=== PATIENT | female | born 1945 | race Caucasian/White ===

== ENCOUNTER 2019-08-17 15:15 | Outpatient (CLI) | payer MEDICARE, SELFPAY ==
--- NOTE | ~2019-08-17 | XR_ITS ---
EXAMINATION: XR abdomen obstructive series DATE: 08/17/2019 15:52 INDICATION: Left upper quadrant abdominal pain TECHNIQUE: Frontal supine and upright views of the abdomen were obtained. COMPARISON: CT abdomen and pelvis dated 03/08/2013 FINDINGS: Small amount of gas and stool scattered throughout the colon.No dilated gas-filled loops of bowel. N o free intraperitoneal gas. There are a few phleboliths in the pelvis. Visualized lung bases are richard r.Heart size is normal accounting for AP technique. Surgical clips at the left axilla. Mild lumbar le voscoliosis with moderate lower lumbar spondylosis. IMPRESSION: 1. No free intraperitoneal gas or dilated gas-filled loops of bowel to suggest obstruction. Reviewed, dictated and finalized at location A.
[2019-08-17 15:30] LABS: Basophils Absolute Auto 0.1 K/mm3 (0.0-0.1); Basophils Percent Auto 0.8 % (0.2-1.2); Eosinophils Absolute Auto 0.2 K/mm3 (0-0.3); Eosinophils Percent Auto 1.5 % (0-4.4); Hematocrit 41.8 % (37.0-47.0); Hemoglobin 13.3 g/dL (12.0-15.0); Immature Granulocyte Absolute 0.04 K/mm3 (0.00-0.031); Immature Granulocyte Percent A 0.4 % (0-0.5); Lymphocytes Absolute Auto 1.85 K/mm3 (0.9-3.2); Lymphocytes Percent Auto 16.8 % (18.3-44.2); Mean Corpuscular HGB Conc 31.8 g/dl (32-36); Mean Corpuscular Hemoglobin 30.6 pg (26-34); Mean Corpuscular Volume 96.3 fl (80-100); Mean Platelet Volume 10.5 fl (7.4-10.4); Monocytes Absolute Auto 0.9 K/mm3 (0.1-0.6); Monocytes Percent Auto 8.1 % (2.6-8.5); Neutrophils Percent Auto 72.4 % (45.5-73.1); Platelet Count Result 236 k/mm3 (150-375); Red Blood Count 4.34 M/mm3 (4.2-5.4); Red Cell Distribution Width 12.8 % (11.5-14.5)
[2019-08-17 15:42] LABS: Blood Urea Nitrogen 9 mg/dL (7-17); Calcium 9.2 mg/dL (8.4-10.2); Carbon Dioxide 29 mmol/L (22-30); Chloride 104 mmol/L (98-107); Estimated Glomerular Filt Rate > 60; Glucose 97 mg/dL (65-105); Potassium 4.4 mmol/L (3.4-5.0); Sodium 138 mmol/L (137-145)
[2019-08-17 17:24] LABS: Amylase 68 U/L (30-110); Lipase 75 U/L (23-300)
== END 2019-08-17 15:16 | disposition home or self-care (01) ==
PROVIDERS: PCP Family Medicine; Visit Provider Physician Assistant
DX: R10.12 Left upper quadrant pain (principal)
CPT/HCPCS: 36415; 74019; 80048; 82150; 83690; 85025

== ENCOUNTER 2019-10-20 11:21 | Outpatient (CLI) | payer MEDICARE, SELFPAY ==
--- NOTE | ~2019-10-20 | MM_ITS ---
EXAMINATION: MM screening [facility] BI w diandra HISTORY: Screening TECHNIQUE: Craniocaudal and mediolateral oblique 3-D tomosynthesis images were obtained and synthetic 2-D images were generated. CAD analysis was submitted and interpreted. COMPARISON: Comparison to multiple prior studies sequentially, with oldest reviewed study dated 08/2013. BREAST PARENCHYMAL COMPOSITION: There are scattered areas of fibroglandular density. FINDINGS: Stable architectural distortion in the upper outer quadrant of the right breast consistent with previous lumpectomy. There is no evidence of suspicious mass, calcification, or architectural di stortion to suggest malignancy in either breast. There has been no suspicious interval change. IMPRESSION: 1. No mammographic evidence of malignancy. 2. Recommend routine screening mammography in one year. BI-RADS Category 2: Benign finding(s). Reviewed, dictated and finalized at location A.
== END 2019-10-20 11:22 | disposition home or self-care (01) ==
LOC: ANHIMG 11:24
PROVIDERS: PCP Family Medicine; Visit Provider Family Medicine
DX: Z12.31 Encounter for screening mammogram for malignant neoplasm of breast (principal)
CPT/HCPCS: 77063; 77067

== ENCOUNTER 2020-03-13 06:54 | Outpatient (NON) | payer MEDICARE, SELFPAY ==
[2020-03-13 21:48] LABS: SARS-CoV-2 RNA PCR Negative
== END 2020-03-13 06:55 ==
PROVIDERS: Nurse Practitioner Family; PCP Family Medicine; Visit Provider Family Medicine
DX: R05 Cough (principal); Z20.828 Contact with and (suspected) exposure to other viral communicable diseases
CPT/HCPCS: 87635; C9803; U0003

== ENCOUNTER 2020-09-19 09:37 | Outpatient (CLI) | payer MEDICARE, SELFPAY ==
[2020-09-19 10:30] LABS: Alanine Aminotransferase 16 U/L (4-35); Albumin Level 4.2 g/dL (3.5-5.1); Alkaline Phosphatase 69 U/L (38-126); Anion Gap 7 mmol/L (8-16); Aspartate Amino Transferase 28 U/L (14-36); Bilirubin,Total 0.8 mg/dL (0.2-1.3); Blood Urea Nitrogen 13 mg/dL (7-17); Calcium 9.7 mg/dL (8.4-10.2); Carbon Dioxide 31 mmol/L (22-30); Chloride 100 mmol/L (98-107); Estimated Glomerular Filt Rate > 60; Glucose 106 mg/dL (65-105); Potassium 3.7 mmol/L (3.4-5.0); Sodium 138 mmol/L (137-145)
== END 2020-09-19 09:38 | disposition home or self-care (01) ==
PROVIDERS: PCP Family Medicine; Visit Provider Family Medicine
DX: I10 Essential (primary) hypertension (principal)
CPT/HCPCS: 36415; 80053

== ENCOUNTER 2020-10-20 08:21 | Outpatient (CLI) | payer MEDICARE, SELFPAY ==
--- NOTE | ~2020-10-20 | MM_ITS ---
EXAMINATION: MM screening [facility] BI w diandra HISTORY: Screening TECHNIQUE: Craniocaudal and mediolateral oblique 3-D tomosynthesis images were obtained and synthetic 2-D images were generated. CAD analysis was submitted and interpreted. COMPARISON: Comparison to multiple prior studies sequentially, with oldest reviewed study dated 10/2014. BREAST PARENCHYMAL COMPOSITION: There are scattered areas of fibroglandular density. FINDINGS: There are surgical lumpectomy changes in the upper outer quadrant of the right breast, unch anged from prior studies. There is no evidence of suspicious mass, calcification, or architectural di stortion to suggest malignancy in either breast. There has been no suspicious interval change. IMPRESSION: 1. No mammographic evidence of malignancy. 2. Recommend routine screening mammography in one year. BI-RADS Category 2: Benign finding(s). Reviewed, dictated and finalized at location A.
== END 2020-10-20 08:22 | disposition home or self-care (01) ==
LOC: ANHIMG 08:23
PROVIDERS: PCP Family Medicine; Visit Provider Family Medicine
DX: Z12.31 Encounter for screening mammogram for malignant neoplasm of breast (principal)
CPT/HCPCS: 77063; 77067

== ENCOUNTER → 2020-10-31 09:04 | Outpatient (CLI) | payer MEDICARE, SELFPAY ==
--- NOTE | ~2020-10-31 | XR_ITS ---
XR abdomen/kub 1V 10/31/2020 09:40 INDICATION: Left upper quadrant pain TECHNIQUE: KUB COMPARISON: 08/17/2019 FINDINGS: Bowel gas pattern is normal. There is no evidence of free air, mass, organomegaly, ascites or obstruction. No abnormal calculi are seen. The bones appear intact. There are pelvic phlebolith s. IMPRESSION: 1: No acute abdominal abnormality identified. Reviewed, dictated and finalized at location A.
== END ==
PROVIDERS: PCP Family Medicine; Visit Provider Family Medicine
DX: R10.12 Left upper quadrant pain (principal)
CPT/HCPCS: 74018

== ENCOUNTER 2020-11-26 20:03 | Inpatient (IN) | payer MEDICARE, SELFPAY ==
--- NOTE | ~2020-11-26 | CT_ITS ---
EXAMINATION: CT brain wo/w con DATE: 11/28/2020 19:42 INDICATION: Metastatic breast cancer TECHNIQUE: Computed tomography (CT) of the head was performed without and subsequently with 100 cc Om nipaque 350 intravenous contrast. The mA was adjusted according to patient size. Iterative reconstruc tion technique was employed. Exam dose: 1210.67 mGy-cm total exam DLP. COMPARISON: None FINDINGS: No intracranial mass lesion or hemorrhage or cerebrovascular accident is evident. No midlin e shift or mass effect. No subdural or epidural hematoma is detected. No fracture or bone destruction of the cranial vault. Included paranasal sinuses and mastoid air cell s are normally developed and aerated. IMPRESSION: No significant intracranial abnormality Reviewed, dictated and finalized at Location A. Metastatic breast cancer Reviewed, dictated and finalized at location A.
--- NOTE | ~2020-11-26 | CT_ITS ---
EXAMINATION: CT diagnostic chest w con DATE: 11/27/2020 15:42 INDICATION: Breast cancer staging TECHNIQUE: Transaxial computed tomographic images of the chest were obtained after the administration of 75 cc of Omnipaque 350 intravenous contrast. The dose-length product (DLP) was 127.03 mGy-cm. Ite rative reconstruction was used. COMPARISON: None FINDINGS: Subpleural reticular opacities in the anterior aspect of the right lung may reflect radiati on change. No focal airspace opacities are identified. There is mild atelectasis. No pleural effusion or pneumothorax is seen. No pathologically enlarged thoracic lymph nodes are identified. The heart s ize is normal. Surgical change is noted in the outer right breast. There is a lytic lesion of the T9 vertebral body which extends into the left pedicle and lamina. There is a pathologic fracture of T9. IMPRESSION: 1. Pathologic fracture of T9. No additional metastatic disease identified. Reviewed, dictated and finalized at location A.
--- NOTE | ~2020-11-26 | NM_ITS ---
EXAMINATION: NM bone scan whole body DATE: 11/27/2020 15:39 INDICATION: Bone metastases. Breast cancer. TECHNIQUE: 26.0 mCi Tc-99m HDP was administered intravenously. Delayed whole-body scintigrams were o btained. COMPARISON: CT chest dated 11/27/[address] abdomen and pelvis dated 11/26/2020 FINDINGS: Prominent increased bone uptake is lower thoracic spine at the level of T8 and T9 corresponding to a likely pathologic burst fracture of T8 and with mixed lytic and sclerotic lesions at the bilateral pe dicles of T9. Additional intense uptake at the right ischial tuberosity corresponds to an additional mixed lytic and sclerotic bone lesion on prior CT. Likely degenerative mild joint centered uptake at the right hindfoot, bilateral knees, acromioclavicular joints and at the bilateral hands and wrists. IMPRESSION: 1. Intense uptake associated with likely metastatic mixed lytic and sclerotic bone lesions at the rig ht ischial tuberosity and at the T8 and T9 vertebral bodies, the former with pathologic burst fractur e. Reviewed, dictated and finalized at location A. IMPRESSION: 1. Intense uptake associated with likely metastatic mixed lytic and sclerotic b one lesions at the right ischial tuberosity and at the T8 and T9 vertebral bodi es, the former with pathologic burst fracture.
--- NOTE | ~2020-11-26 | CT_ITS ---
EXAMINATION: CT abdomen pelvis wo con DATE: 11/26/2020 23:24 INDICATION: Right flank pain TECHNIQUE: Computed tomography (CT) of the abdomen and pelvis was performed without intravenous contr ast. Automated exposure control and iterative reconstruction technique were employed. Exam dose: 212 .19 mGy-cm total exam DLP. COMPARISON: 03/08/2013 CT abdomen pelvis 10/31/2020 KUB FINDINGS: Scattered focal discoid atelectasis or scarring at the lung bases. Stable small peripheral opacity at the anterior aspect of the middle lobe since 03/08/2013. Normal heart size. No pericardial or pleural effusion. The gallbladder is moderately distended. No pericholecystic fluid or fat stranding. The liver, spleen , pancreas, bile ducts and pancreatic duct are unremarkable. Normal morphology of the adrenal glands. Approximately 2.5 mm nonobstructing mid left renal calculus. No other urinary tract calculus or hydro ureteronephrosis. The urinary bladder is unremarkable. Status post hysterectomy. Normal caliber of the abdominal aorta. No intraperitoneal or retroperitoneal or pelvic mass lesion or adenopathy or ascites. Minimal colonic diverticulosis; no CT evidence of diverticulitis. No bowel obstruction, bowel wall th ickening, pneumatosis or intraperitoneal free air. There is suggestion of extensive lytic change of T8, which is only minimally included in this examina tion. There is a history of cervical and breast cancer. Metastatic breast cancer is suspected. Consid er radionuclide bone scan for further evaluation. No suspicious osteolytic or osteoblastic lesions are noted otherwise. There is prominent degenerative change at the apophyseal joints and lumbosacral area with associated grade 1 anterolisthesis at L4-5 . There is severe degenerative disc disease at L4-5 and L5-S1. IMPRESSION: Extensive lytic change of T8 consistent with metastatic disease, likely metastatic breas t cancer given the patient's history Approximately 2.5 mm nonobstructing mid left renal calculus; no urinary tract obstruction or hydronep hrosis Status post hysterectomy Minimal colonic diverticulosis Reviewed, dictated and finalized at Location A. Reviewed, dictated and finalized at location A. IMPRESSION: Extensive lytic change of T8 consistent with metastatic disease, pablo howard metastatic breast cancer given the patient's history Approximately 2.5 mm nonobstructing mid left renal calculus; no urinary tract o bstruction or hydronephrosis Status post hysterectomy Minimal colonic diverticulosis
--- NOTE | ~2020-11-26 | MR_ITS ---
EXAMINATION: MR thoracic spine wo/w con EXAM DATE: 11/28/2020 12:43 INDICATION: Lytic lesion T8 and pathologic burst fx T9 . Breast cancer. TECHNIQUE: Multi-sequential, multiplanar MR images of the thoracic spine were obtained without contra st. Sagittal T1, T2, T2 fat saturation, axial T2 weighted images reviewed. Axial T1 weighted sequenc e. Patient was then injected with 14 mL Multihance intravenous contrast and reimaged. Postcontrast axial and sagittal T1-weighted fat saturation sequences were obtained. FINDINGS: There is pathological burst fracture of the T9 vertebral body with only 3 mm bulging crib tender ior aspect, moderate loss of this vertebral body height. Marrow infiltration extends into left pedicl e and facet joint, and has extraosseous extension into the left posterolateral paraspinal soft tissue including the T9-T10 neural foramina. Small amount of infiltration of the T8 and T10 vertebral yazan s at their left sides. Otherwise the thoracic neural foramen are widely patent. There is mild central canal stenosis posterior to the T9 vertebral body. Postcontrast images demonstrates enhancement of t he infiltrative malignancy described above. IMPRESSION: T9 pathological compression fracture from underlying infiltrative malignancy with left po sterior lateral extraosseous extension and small amount of contiguous T8 and T10 invasion. Reviewed, dictated and finalized at location B. IMPRESSION: T9 pathological compression fracture from underlying infiltrative m alignancy with left posterior lateral extraosseous extension and small amount o f contiguous T8 and T10 invasion.
[2020-11-26 20:19] VITALS: BP 149/69; PULSE 94; RESP 17; TEMP 36.8; O2SAT 98
[2020-11-26] MEDS: KETOROLAC 30 MG/ML VIAL (*BKC) 15 MG IV PUSH (23:47)
[2020-11-26 23:48] LABS: Add Urine Microscopic? YES; Appearance Urine Clear (Clear); Bilirubin Urine Negative (Negative); Blood Urine 1+ (Negative); Color Urine Straw (Yellow); Glucose Urine UA Negative (Negative); Ketones Urine Negative (Negative); Leukocyte Esterase Ur 3+ LEU/UL (Negative); Mucus Urine Rare /lpf; Nitrate Urine Negative (Negative); Protein Urine Negative (Negative); RBC Urine 0-2 /hpf (0-2); Specific Grav Ur 1.009 (1.001-1.035); Squamous Epithelial Cell Urine Rare /hpf (Few); Urobilinogen Urine Negative mg/dL (<2.0); WBC Urine 31-50 /hpf
[2020-11-26] MEDS: ONDANSETRON INJ 4 MG/2 ML VIAL IV PUSH (23:50)
[2020-11-26] MEDS: MORPHINE SULFATE (*CRX) 4 MG/ML INJ 2 MG IV PUSH (23:52)
[2020-11-26 23:58] VITALS: BP 127/72; PULSE 71; RESP 13; O2SAT 100
[2020-11-27] VITALS (14 sets, daily range): BP systolic 101–153; BP diastolic 49–71; PULSE 62–81; RESP 12–18; TEMP 36.1–36.8; O2SAT 94–100; BMI 25.5
[2020-11-27 00:22] LABS: Basophils Absolute Auto 0.1 K/mm3 (0.0-0.1); Basophils Percent Auto 0.8 % (0.2-1.2); Eosinophils Absolute Auto 0.1 K/mm3 (0-0.3); Eosinophils Percent Auto 0.7 % (0-4.4); Hematocrit 41.7 % (37.0-47.0); Hemoglobin 13.5 g/dL (12.0-15.0); Immature Granulocyte Absolute 0.04 K/mm3 (0.00-0.031); Immature Granulocyte Percent A 0.4 % (0-0.5); Lymphocytes Absolute Auto 1.67 K/mm3 (0.9-3.2); Lymphocytes Percent Auto 15.8 % (18.3-44.2); Mean Corpuscular HGB Conc 32.4 g/dl (32-36); Mean Corpuscular Hemoglobin 30.5 pg (26-34); Mean Corpuscular Volume 94.1 fl (80-100); Mean Platelet Volume 10.6 fl (7.4-10.4); Monocytes Absolute Auto 0.7 K/mm3 (0.1-0.6); Monocytes Percent Auto 6.9 % (2.6-8.5); Neutrophils Percent Auto 75.4 % (45.5-73.1); Platelet Count Result 252 k/mm3 (150-375); Red Blood Count 4.43 M/mm3 (4.2-5.4); Red Cell Distribution Width 12.6 % (11.5-14.5); White Blood Count 10.5 K/mm3 (4.5-10.0)
[2020-11-27 00:32] LABS: Anion Gap 11 mmol/L (8-16); Blood Urea Nitrogen 10 mg/dL (7-17); Calcium 10.4 mg/dL (8.4-10.2); Carbon Dioxide 29 mmol/L (22-30); Chloride 101 mmol/L (98-107); Estimated CRCL calculation 66 ml/min; Estimated Glomerular Filt Rate > 60; Glucose 119 mg/dL (65-110); Potassium 3.4 mmol/L (3.4-5.0); Sodium 141 mmol/L (137-145)
--- NOTE | 2020-11-27 01:03 | ED.BACK ---
HPI - Back Pain/Injury General Chief Complaint: Back Pain/Injury Stated Complaint: right lower back pain and spasms Time Seen by Provider: 11/26/20 22:52 Source: patient Mode of arrival: ambulatory Limitations: no limitations History of Present Illness HPI Narrative: 75-year-old with a history of breast CA, cervical CA s/p radiation and chemotherapy here with complaints of right flank and back pain for the past several weeks. Patient states however for the past few days her pain has been quite intense. She denies any trauma. No history of fever or chills. Denies any blood in the urine. No previous history of urinary tract infections or kidney stones. She states that she has seen Dr. Bourgeois for the same had outpatient x-rays which were unremarkable. MD elicited complaint: back pain Onset (ago): week(s) (3) Timing: intermittent Severity: moderate Similar Symptoms Previously: Yes Location: lumbar spine and thoracic spine Radiation: abdomen Exacerbating factors: none Relieving factors: none Associated symptoms: denies other symptoms Related Data Allergies Allergy/AdvReac Type Severity Reaction Status Date / Time codeine AdvReac Unknown Vomiting Verified 11/26/20 23:03 Review of Systems Review of Systems: All systems reviewed & are unremarkable except as noted in HPI and below Constitutional: Constitutional: Reports no additional constitutional complaints Eyes: Eyes: Reports no additional eye complaints ENT: Reports system reviewed and no additional complaints, except as documented Cardiovascular: Cardiovascular: Reports no additional cardiovascular complaints Respiratory: Respiratory: Reports no additional respiratory complaints Gastrointestinal: Gastrointestinal: Reports as per HPI Musculoskeletal: Musculoskeletal: Reports as per HPI Integumentary/Breasts: Skin/Breast: Reports system reviewed and no additional complaints, except as docu Neurologic: Reports system reviewed and no additional complaints, except as documented PMFSH Past Medical History Medical History Bilateral low back pain Hypertension Family History Family History Mother Family history of diabetes mellitus in first degree relative Diabetes mellitus Father Family history of emphysema Family history of chronic obstructive pulmonary disease Other Family history of multiple sclerosis Social History Social History Smoking packs per day: 0.5 Smoking cigarettes per day: 10.0 Years smoked: 5 Smoking pack-years: 2.50 Smoking status: Former smoker Tobacco type: cigarettes Second hand tobacco smoke exposure: No Smoking end date: 03/14/74 Alcohol intake: never Substance use: never Gender identity (if verbalized by the patient): Female Exam Narrative: GENERAL: Well-appearing, well-nourished, and in no acute distress. HEAD: Normocephalic, atraumatic. EYES: PERRLA and EOMI. NECK: Supple. CHEST: Clear to auscultation. No respiratory distress. HEART: Regular rate and rhythm. No murmur heard. Normal peripheral pulses. ABDOMEN: Soft, nontender, nondistended, normal active bowel sounds. No CVA tenderness EXTREMITIES: Normal range of motion. No edema. Has pain around the thoracic and upper lumbar area SKIN: Warm, dry, no rash. NEURO: No focal deficits. Alert and oriented x3. PSYCH: Normal mood and affect. Course Course Emergency Course: Patient feeling much better at this time. I informed her about her lab work, CT findings. Admit to the hospital for pain control and for further work-up.. Vital Signs Vital signs: Vital Signs Temperature 36.8 C 11/26/20 20:19 Pulse Rate 94 11/26/20 20:19 Respiratory Rate 17 11/26/20 20:19 Blood Pressure 149/69 H 11/26/20 20:19 Pulse Oximetry 98 11/26/20 20:19 Temperature 36.8 C 11/26/20 20:19 Puls
[2020-11-27] MEDS: DEXAMETHASONE SOD PHOS INJ 4 MG/ML VIAL 10 MG IV PUSH (02:11)
[2020-11-27] MEDS: SODIUM CHLORIDE 0.9% IV 1,000 ML 50 ML IV CONT (02:12)
--- NOTE | 2020-11-27 02:33 | PM.IMHP ---
H&P: HPI History of Present Illness Date/Time: 11/27/20 02:33 Chief Complaint: Flank pain Narrative: This is a 75-year-old female with past medical history significant for breast cancer 10 years ago in remission, cervical cancer 5 years ago status post total hysterectomy patient presented to the emergency room due to pain in the right flank with radiation to the rib cage, patient tried taking Motrin also tried Salonpas but did not help she denies ,any rigors, any chills, any fevers, any cough, any sputum production, shortness of breath ,any chest pain, palpitations, PND ,orthopnea and leg swelling. She has been in her usual state of health up until this episode. Preliminary workup was significant for CT of abdomen and pelvis with nonobstructive renal calculi and T8 lytic lesion. Patient has been placed in observation for pain management. Review of Systems Review of Systems: Right flank and rib cage pain Constitutional: Constitutional: Denies chills, Denies fatigue, Denies fever(s), Denies lethargy, Denies malaise, Denies night sweats and Denies weakness Eyes: Eyes: Denies change in vision ENT: Denies dysphagia, Denies dizziness, Denies nasal congestion, Denies nasal discharge, Denies nasal obstruction and Denies odynophagia Cardiovascular: Cardiovascular: Denies edema, Denies irregular heart rhythm, Denies claudication, Denies lightheadedness, Denies radiating jaw, neck or arm pain, Denies palpitations, Denies dyspnea on exertion and Denies orthopnea Respiratory: Respiratory: Denies cough and Denies dyspnea Gastrointestinal: Gastrointestinal: Denies abdominal pain, Denies nausea and Denies vomiting Genitourinary: Genitourinary: Reports no additional female genitourinary complaints Musculoskeletal: Musculoskeletal: Denies arthralgias Integumentary/Breasts: Skin/Breast: Reports system reviewed and no additional complaints, except as docu Neurologic: Reports system reviewed and no additional complaints, except as documented Psychiatric: Psychiatric: Reports no additional psychiatric complaints Endocrine: Endocrine: Reports no additional endocrine complaints Hematologic/Lymphatic: Hematologic/Lymphatic: Reports no additional hematologic/lymphatic complaints Allergic/Immunologic: Allergic/Immunologic: Reports no additional allergic/immunologic complaints PMFSH Past Medical History Medical History Bilateral low back pain Hypertension Family History Family History Mother Family history of diabetes mellitus in first degree relative Diabetes mellitus Father Family history of emphysema Family history of chronic obstructive pulmonary disease Other Family history of multiple sclerosis Social History Social History Smoking packs per day: 0.5 Smoking cigarettes per day: 10.0 Years smoked: 5 Smoking pack-years: 2.50 Smoking status: Former smoker Tobacco type: cigarettes Second hand tobacco smoke exposure: No Smoking end date: 03/14/74 Alcohol intake: never Substance use: never Gender identity (if verbalized by the patient): Female Meds Home Medications and Allergies Home Medications Medication Instructions Recorded Confirmed Type lisinopril 10 1 tablet PO DAILY #90 tablet 04/23/20 10/29/20 Rx mg-hydrochlorothiazide 12.5 mg tablet Allergies Allergy/AdvReac Type Severity Reaction Status Date / Time codeine AdvReac Unknown Vomiting Verified 11/26/20 23:03 Vital Signs Vital Signs - 24 hr 11/26/20 20:19 11/26/20 23:58 11/27/20 00:16 Temperature 98.2 F Pulse Rate 94 71 67 Respiratory Rate 17 13 12 Blood Pressure 149/69 H 127/72 119/69 Pulse Oximetry 98 100 100 11/27/20 00:31 11/27/20 00:46 11/27/20 01:01 Temperature Pulse Rate 73 70 68 Respiratory Rate 14 14 13 Blood Pressure 153/64 H 124/65 130/71
--- NOTE | 2020-11-27 03:19 | ADMGEN ---
This patient, Rashida Bray, was admitted to [facility] Surg Room 322-01. Patient/family oriented to hospital policies and general routines including ID bracelet, bed and alarms, visiting hours, pain management, procedures, bathroom and other care routines, personal items, smoking policy, room service/diet, and visiting hours. Information on how to activate the Rapid Response Team has been discussed. Patient/Family are encouraged to report perceived risks to care and to ask questions if they do not understand what they are told or what they should do.
[2020-11-27] MEDS: HEPARIN SODIUM 5,000 UNITS/ML VIAL 5000 UNITS SUB-Q ×3 (05:23→22:05)
[2020-11-27] MEDS: lisinopriL 10 MG TABLET PO (10:40)
[2020-11-27] MEDS: hydroCHLOROthiazide 12.5 MG CAPSULE PO (10:40)
[2020-11-27 10:46] LABS: Anion Gap 11 mmol/L (8-16); Blood Urea Nitrogen 12 mg/dL (7-17); Calcium 9.5 mg/dL (8.4-10.2); Carbon Dioxide 25 mmol/L (22-30); Chloride 103 mmol/L (98-107); Estimated CRCL calculation 66 ml/min; Estimated Glomerular Filt Rate > 60; Glucose 197 mg/dL (65-110); Magnesium 2.2 mg/dL (1.6-2.3); Potassium 4.1 mmol/L (3.4-5.0); Sodium 139 mmol/L (137-145)
--- NOTE | 2020-11-27 12:37 | PDONCCN ---
HPI - Date of Consult Date/Time: 11/27/20 12:37 Requesting Physician: Jennifre Huitron PA-C Primary Care Provider: Antione Bourgeois MD - Consult Narrative Reason for consult: Likely metastatic breast cancer Narrative: Rashida Bray is a 75 year old female with history of right-sided breast cancer with lymph node positive disease status post right-sided lumpectomy 12 years ago and new adjuvant chemotherapy then radiation therapy. She completed 5 years of hormonal therapy with Arimidex. She was then diagnosed with cervical cancer about 7 years ago and had complete hysterectomy done. She did not receive any chemotherapy and radiation therapy for cervical cancer. Patient not started having intermittent abdominal pain since March of 2020 and pain become more constant in last couple of months duration. She denies any weight loss. Denies any chest pain and shortness of breath. She has some right flank and back pain. No new lung sounds are lymphadenopathy. CT scan of abdomen and pelvis was done on November 26 that showed extensive lytic change of T8 vertebral body consistent with metastatic disease likely breast cancer metastasis. Review of Systems - Review of Systems All systems reviewed & are unremarkable except as noted in HPI and bel - Neurologic Reports system reviewed and no additional complaints, except as documented, Denies weakness PMFSH Medical History: Medical History (Last Reviewed 11/27/20 @ 01:05 by Unruly Boateng MD) Bilateral low back pain Hypertension Family History: Family History (Last Reviewed 11/27/20 @ 01:06 by Unruly Boateng MD) Mother Family history of diabetes mellitus in first degree relative Diabetes mellitus Father Family history of emphysema Family history of chronic obstructive pulmonary disease Other Family history of multiple sclerosis - Social History Social History: Social History (Last Reviewed 11/27/20 @ 01:06 by Unruly Boateng MD) Gender Identity: Gender identity (if verbalized by the patient): Female Alcohol Use: Alcohol intake: never Substance Use: Substance use: never Others: Spiritual care concerns: No Smoking Status: Smoking status: Former smoker Tobacco type: cigarettes Second hand tobacco smoke exposure: No Smoking end date: 03/14/74 Smoking Pack-years: Smoking packs per day: 0.5 Smoking cigarettes per day: 10.0 Years smoked: 5 Smoking pack-years: 2.50 Meds Home Medications Medication Instructions Recorded Confirmed Type lisinopril 10 1 tablet PO DAILY #90 tablet 04/23/20 11/27/20 Rx mg-hydrochlorothiazide 12.5 mg tablet Allergies Allergy/AdvReac Type Severity Reaction Status Date / Time codeine AdvReac Unknown Vomiting Verified 11/26/20 23:03 Results - Labs CBC & Chem 7: 11/26/20 23:57 11/27/20 09:46 Labs: Short CBC 11/26/20 Range/Units 23:57 WBC 10.5 H (4.5-10.0) K/mm3 Hgb 13.5 (12.0-15.0) g/dL Hct 41.7 (37.0-47.0) % Plt Count 252 (150-375) k/mm3 BMP 11/26/20 11/27/20 23:57 09:46 Sodium 141 139 Potassium 3.4 4.1 Chloride 101 103 Carbon Dioxide 29 25 BUN 10 12 Creatinine 0.60 L 0.60 L Glucose 119 H 197 H Calcium 10.4 H 9.5 Urine 11/26/20 Range/Units 23:04 Urine Color Straw (Yellow) Urine Appearance Clear (Clear) Urine pH 6.0 (5.0-9.0) Ur Specific Whitmer 1.009 (1.001-1.035) Urine Protein Negative (Negative) mg/dL Urine Glucose (UA) Negative (Negative) mg/dL Assessment and Plan - Additional Plan Likely metastatic breast cancer with bone involvement. Patient is the pleasant 75-year-old female with diagnosis of early stage right-sided breast cancer with lymph node positive disease is status post lumpectomy and adjuvant chemotherapy with subsequent radiation therapy. She completed 5 years of hormonal therapy with Arimidex. She also has
[2020-11-27] MEDS: ACETAMINOPHEN 325 MG TABLET 650 MG PO (12:54)
--- NOTE | 2020-11-27 15:10 | PC.NURSE ---
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 I have reviewed the student's documentation and agree with the findings.
--- NOTE | 2020-11-27 16:12 | PM.IMPN ---
Progress Note: A&P Assessment and Plan (1) Back pain of thoracolumbar region: Code(s): M54.5 - Low back pain; M54.6 - Pain in thoracic spine Status: Acute Assessment and Plan: Patient has been having back pain for months. She saw her primary who did imaging which was inconclusive. She has slowly developed worsening pain without much improvement at home with oral medications and heating pad. CT abdomen pelvis was completed showing Extensive lytic change of T8 consistent with metastatic disease, likely metastatic breast cancer given the patient's history The patient was admitted into the hospital for further evaluation and oncology consultation. Dr. Ba evaluated the patient and has concerns that her prior breast cancer could have spread to her bone. CT chest and bone nuclear medicine scan have been ordered and pending interpretation by the radiologist Until then we will continue monitoring and treating her pain to a tolerable level and work on medications that she can take upon discharge Also start stool softeners and MiraLax to prevent diarrhea associated with narcotics The patient understands and agrees with the plan all questions answered (2) Hypertension: Code(s): I10 - Essential (primary) hypertension Status: Acute Assessment and Plan: Continue home med Blood pressure has been stable. (3) History of breast cancer: Code(s): Z85.3 - Personal history of malignant neoplasm of breast Status: Acute Assessment and Plan: Patient was in remission. Recent mammogram 1 month ago was normal (4) History of cervical cancer: Code(s): Z85.41 - Personal history of malignant neoplasm of cervix uteri Status: Acute Assessment and Plan: Patient is in remission. History of hysterectomy in the past. (5) UTI (urinary tract infection): Code(s): N39.0 - Urinary tract infection, site not specified Status: Acute Assessment and Plan: Patient has an abnormal urinalysis with 3+ leukocyte esterase and 31-50 wbc's. She was started on IV Rocephin upon admission by the emergency room provider. Pending urine culture results at this time. Hopefully by tomorrow results return and we can tailor antibiotics accordingly Time Spent With Patient Time with patient: 25 - 35 minutes Subjective Date/time seen: 11/27/20 16:12 Interval history: Date of service 11/27/2020: Patient reports having increased back pain after coming back from her CT scan and bone scan. She states it is to her mid back but it also is to her right flank area as well as across her upper abdomen. She denies any nausea or vomiting. She would like something stronger than Tylenol to help with this pain but she is naive to other medications. She denies any chest pain, shortness breath, cough, fever, chills, leg swelling, calf pain, numbness, tingling, fall, trauma or any other symptoms at this time. Review of Systems Review of Systems: All systems reviewed & are unremarkable except as noted in HPI and below Exam Narrative: General: 75-year-old woman sitting up in the chair, appears to be in pain holding her flank area and her eyes closed. In no acute distress. Skin: No jaundice or cyanosis. Good skin turgor. Neck: Full range of motion. Supple. Nontender to midline neck palpation. Respiratory: Lungs are clear to auscultation bilaterally. No bony chest wall tenderness. Cardiovascular: The heart has a regular rate and rhythm without murmur. Back: Midline tenderness to palpation to T8-T9. No signs of trauma to her back. She does report some mild reproducible tenderness to palpation of right flank but her pain is also different. Lower extremities: No lower ex
[2020-11-27] MEDS: polyethylene glycoL 3350 17 GM POWD.PACK PO (16:53)
[2020-11-27] MEDS: HYDROcodone/acetaminophen (*CRX) 5-325 MG TABLET 1 TAB PO (17:01)
[2020-11-27] MEDS: DOCUSATE SODIUM 100 MG CAPSULE PO (22:05)
[2020-11-28] MEDS: HYDROcodone/acetaminophen (*CRX) 5-325 MG TABLET 1 TAB PO ×3 (05:25→13:57)
[2020-11-28] MEDS: HEPARIN SODIUM 5,000 UNITS/ML VIAL 5000 UNITS SUB-Q ×3 (05:27→21:15)
[2020-11-28 06:00] VITALS: BP 108/49; PULSE 62; RESP 16; TEMP 36.6; O2SAT 100
[2020-11-28] MEDS: polyethylene glycoL 3350 17 GM POWD.PACK PO (08:36)
[2020-11-28] MEDS: lisinopriL 10 MG TABLET PO (08:36)
[2020-11-28] MEDS: hydroCHLOROthiazide 12.5 MG CAPSULE PO (08:36)
[2020-11-28] MEDS: DOCUSATE SODIUM 100 MG CAPSULE PO ×2 (08:36→21:15)
[2020-11-28] MEDS: CYCLOBENZAPRINE HCL 5 MG TABLET PO (10:01)
[2020-11-28 14:00] VITALS: BP 114/70; PULSE 72; RESP 16; TEMP 36.6; O2SAT 100
[2020-11-28] MEDS: BISACODYL 10 MG SUPPOSITORY RECTAL (15:04)
--- NOTE | 2020-11-28 16:37 | PM.IMPN ---
Progress Note: A&P Assessment and Plan (1) Back pain of thoracolumbar region: Code(s): M54.5 - Low back pain; M54.6 - Pain in thoracic spine Status: Acute Assessment and Plan: Patient has been having back pain for months. She has slowly developed worsening pain without much improvement at home with oral medications and heating pad. CT abdomen pelvis was completed showing Extensive lytic change of T8 consistent with metastatic disease, likely metastatic breast cancer given the patient's history The patient was admitted into the hospital for further evaluation and oncology consultation. Dr. Ba evaluated the patient and has concerns that her prior breast cancer could have spread to her bone. He checked CA 15-3 and CA 27-[address] chest was normal Bone nuclear medicine scan showing Intense uptake associated with likely metastatic mixed lytic and sclerotic bone lesions at the right ischial tuberosity and at the T8 and T9 vertebral bodies, the former with pathologic burst fracture. Due to Burst Fract ure being noted further MRI of thoracic spine was completed showing T9 pathological compression fracture from underlying infiltrative malignancy with left posterior lateral extraosseous extension and small amount of contiguous T8 and T10 invasion. I called [facility] and talked to Ortho Spine Dr. Mendez who reviewed the patient's MRI and recommends her to have a TLSO brace. 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 The TLSO brace will help with stability, avoid kyphosis deformity and help with her overall pain. He recommends x-rays of her thoracic spine every 1-2 weeks to monitor for alignment. He recommends her seen a surgical services asst at [facility] who works with spinal cancers his name is Dr. Osiel Iqbal. I talked to Dr. Ba oncology, who recommended better pain control with morphine 15 mg every 12 hours with breakthrough pain using [place] 5/325 mg tablets. A call was placed for a TLSO brace with Petrophysicist who should be by tomorrow with it Until then we will continue monitoring and treating her pain to a tolerable level and work on medications that she can take upon discharge Also start stool softeners and MiraLax to prevent constipation associated with narcotics Will get CT Brain recommeded by [facility] to rule out malignancy Further imaging recommended by [facility] as outpatient to include MRI Cervical, Thoracic and Lumbar with and without contrast The patient understands and agrees with the plan all questions answered (2) Hypertension: Code(s): I10 - Essential (primary) hypertension Status: Acute Assessment and Plan: Continue home med Blood pressure has been stable. (3) History of breast cancer: Code(s): Z85.3 - Personal history of malignant neoplasm of breast Status: Acute Assessment and Plan: Patient was in remission. Recent mammogram 1 month ago was normal (4) History of cervical cancer: Code(s): Z85.41 - Personal history of malignant neoplasm of cervix uteri Status: Acute Assessment and Plan: Patient is in remission. History of hysterectomy in the past. (5) UTI (urinary tract infection): Code(s): N39.0 - Urinary tract infection, site not specified Status: Acute Assessment and Plan: Patient has an abnormal urinalysis with 3+ leukocyte esterase and 31-50 wbc's. She was started on IV Rocephin upon admission by the emergency room provider. Pending urine culture results at this time. Hopefully by tomorrow results return and we can tailor antibiotics accordingly Time Spent With Patient Time with patient: 25 - 35 minute
[2020-11-28] MEDS: GABAPENTIN 100 MG CAPSULE PO (18:33)
[2020-11-28] MEDS: MORPHINE SULFATE (*CRX) 15 MG TABCR PO (21:15)
[2020-11-28 22:00] VITALS: BP 124/69; PULSE 64; RESP 20; TEMP 36.5; O2SAT 98
[2020-11-29] MEDS: HYDROcodone/acetaminophen (*CRX) 5-325 MG TABLET 1 TAB PO (05:33)
[2020-11-29] MEDS: HEPARIN SODIUM 5,000 UNITS/ML VIAL 5000 UNITS SUB-Q ×2 (05:34→13:33)
[2020-11-29 06:00] VITALS: BP 109/61; PULSE 75; RESP 20; TEMP 36.6; O2SAT 98
[2020-11-29] MEDS: lisinopriL 10 MG TABLET PO (08:37)
[2020-11-29] MEDS: GABAPENTIN 100 MG CAPSULE PO ×2 (08:37→13:33)
[2020-11-29] MEDS: DOCUSATE SODIUM 100 MG CAPSULE PO (08:37)
[2020-11-29] MEDS: polyethylene glycoL 3350 17 GM POWD.PACK PO (08:37)
[2020-11-29] MEDS: hydroCHLOROthiazide 12.5 MG CAPSULE PO (08:37)
[2020-11-29] MEDS: MORPHINE SULFATE (*CRX) 15 MG TABCR PO (08:44)
[2020-11-29 14:00] VITALS: BP 96/52; PULSE 65; RESP 18; TEMP 36.9; O2SAT 99
--- NOTE | 2020-11-29 15:00 | PM.DS ---
DS: Admitting Diagnosis Discharge Date 11/29/20 Admitting Diagnosis Back pain DS: Discharge Diagnosis Discharge Diagnosis (1) Back pain of thoracolumbar region: Code(s): M54.5 - Low back pain; M54.6 - Pain in thoracic spine Status: Acute Assessment and Plan: The patient is a 75-year-old woman with a history of breast cancer 10 years ago in remission, cervical cancer 5 years ago status post total hysterectomy, who presented to the emergency room with worsening, constant right-sided back pain with radiation into her upper abdomen which have been going on for months without any relief with Motrin at home. Vitals show elevated blood pressure 149/69, non tachycardic heart rate, afebrile, normal oxygenation on room air. Initial labs show slight leukocytosis at 10,500, most likely secondary to pain. Normal BMP. Urinalysis with 3+ leukocyte esterase and WBCs 30 1-50 with urine culture showing contamination. Patient is not having any urinary symptoms at this time but if she develops that she will call her PCP. CT abdomen pelvis was completed showing Extensive lytic change of T8 consistent with metastatic disease, likely metastatic breast cancer given the patient's history The patient was admitted into the hospital for further evaluation and oncology consultation. Dr. Ba evaluated the patient and has concerns that her prior breast cancer could have spread to her bone. He checked CA 15-3 and CA 27-29 which are both elevated. CT chest was normal CT Brain normal Bone nuclear medicine scan showing Intense uptake associated with likely metastatic mixed lytic and sclerotic bone lesions at the right ischial tuberosity and at the T8 and T9 vertebral bodies, the former with pathologic burst fracture. Due to Burst Fract ure being noted further MRI of thoracic spine was completed showing T9 pathological compression fracture from underlying infiltrative malignancy with left posterior lateral extraosseous extension and small amount of contiguous T8 and T10 invasion. I called [facility] and talked to Ortho Spine Dr. Mendez who reviewed the patient's MRI and recommends her to have a TLSO brace. 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 The TLSO brace will help with stability, avoid kyphosis deformity and help with her overall pain. He recommends x-rays of her thoracic spine every 1-2 weeks to monitor for alignment. He recommends her seen a director medical surgical at [facility] who works with spinal cancers his name is Dr. Osiel Iqbal. I talked to Dr. Ba oncology, who recommended better pain control with morphine 15 mg every 12 hours with breakthrough pain using [place] 5/325 mg tablets. Also started on Gabapentin for radiculopathy nerve pain which is her biggest complaint. A call was placed for a TLSO brace with [employer] who delivered it and PT/OT evaluated the patient to help her use the brace. The patient is feeling well at this time and the pain medications are helping. She is also started on stool softener to prevent diarrhea associated with narcotic use. To follow-up with Dr. Ba in 1 week for further evaluation and to go over her labs and imaging results. She was given the information to see Dr. Osiel herrera when who specializes in spine surgery related to metastases. Further imaging recommended by [facility] as outpatient to include MRI Cervical, Thoracic and Lumbar with and without contrast if the patient is to see [facility] Spine as outpatient (2) Hypertension: Code(s): I10 - Essential (primary) hypertension Status: Acute Assessment and Plan: The patient's blood pressures have been slightly low since starting the narcotic pain medications. I discussed with the patient to stop taking hydrochlorothiazide and we will only send keep with lisinopril. Told her check her blood pressures twice daily o
[2020-11-30 06:17] LABS: CA 15-3 36 U/mL (<32); CA 27.29 58 U/mL (<38)
== END 2020-11-29 16:45 | disposition home or self-care (01) | DRG 543 ==
LOC: ANHED 11-27 01:11 → ANH3MEDSUR 11-27 02:29
PROVIDERS: Internal Medicine Hematology & Oncology; Physician Assistant; Admitting Provider Internal Medicine; Emergency Provider Family Medicine; PCP Family Medicine; Visit Provider Internal Medicine
DX: M48.54XA Collapsed vertebra, not elsewhere classified, thoracic region, initial encounter for fracture (principal); C79.51 Secondary malignant neoplasm of bone; N39.0 Urinary tract infection, site not specified; I10 Essential (primary) hypertension; Z85.3 Personal history of malignant neoplasm of breast; Z85.41 Personal history of malignant neoplasm of cervix uteri; Z90.710 Acquired absence of both cervix and uterus; Z87.891 Personal history of nicotine dependence
CPT/HCPCS: 36415; 70470; 71260; 72157; 74176; 78306; 80048; 81001; 83735; 85025; 86300; 87086; 87088; 96365; 96372; 96374; 96375; 97162; 97165; 99285; A9270; A9561; A9577; G0378; J0696; J1100; J1644; J1885; J2270; J2405; J7030; Q9967

== ENCOUNTER 2021-01-27 16:38 | Outpatient (CLI) | payer MEDICARE, SELFPAY ==
--- NOTE | ~2021-01-27 | DEXA_ITS ---
Bone Density Report Name: Rashida Bray Age: 75 Sex: Female Ethnicity: White Date of : 1945 Indication: postmenopausal; height loss; prior fracture; cancer; hysterectomy; Referring Provider: NIDHI DIAZ Study: Bone densitometry was performed. Exam Date: January 27, 2021 Accession number: [id number] Bone Density: Region BMD T-score Z-score Classification AP Spine (L1, L2) 0.935 -0.4 1.8 Normal Femoral Neck (Left) 0.785 -0.6 1.4 Normal Total Hip (Left) 0.973 0.3 2.0 Normal Total Hip Bilateral Avg 0.950 0.1 1.8 Normal Femoral Neck (Right) 0.781 -0.6 1.4 Normal Total Hip (Right) 0.927 -0.1 1.6 Normal World Health Organization criteria for BMD impression classify patients as: Normal (T-score at or above -1.0), Osteopenia (T-score between -1.0 and -2.5), or Osteoporosis (T-score at or below -2.5). 10-year Fracture Risk: FRAX not reported because: All T-scores for Spine Total, Hip Total, Femoral Neck at or above -1.0 Prior hip or vertebral fracture Previous Exams: Region Exam Age BMD T-score BMD Change BMD Change Date g/cm2 vs Baseline vs Previous AP Spine(L1, L2) 01/27/2021 75 0.935 -0.4 -0.088(-8.6%)# -0.088(-8.6%)# 10/11/2011 66 1.023 0.4 Total Hip(Left) 01/27/2021 75 0.973 0.3 -0.032(-3.2%)# -0.004(-0.4%) 06/02/2017 72 0.977 0.3 -0.029(-2.9%)# -0.029(-2.9%)# 10/11/2011 66 1.006 0.5 Total Hip(Right) 01/27/2021 75 0.927 -0.1 -0.078(-7.8%)# -0.034(-3.6%)* 06/02/2017 72 0.962 0.2 -0.044(-4.3%)# -0.044(-4.3%)# 10/11/2011 66 1.005 0.5 *Denotes significance at 95% confidence level, LSC for AP Spine = 0.022 g/cm2, LSC for Total Hip = 0.027 g/cm2 Clinical Information Provided by Patient: Have had a previous hip or vertebral fracture Has had a low trauma fracture Has used the following medications: Vitamin D Has the following medical conditions: Cancer, Hysterectomy Patient maximum height was 67 Menopause Age: 56 Drinks caffeinated beverages Onset of menses at age 14 Number of children 1 Impression: The patient has normal bone mass. The patient has risk factors, including: previous fracture. The BMD for the Total Hip(Right) decreased, changing by -3.6% since the last DXA exam. Discussion: INCREASED RISK OF FRACTURE DUE TO HISTORY OF FRACTURE. The patient's previous fracture puts the patient at high risk of a future fracture. In untreated patients, the risk of osteoporotic fracture increases
== END 2021-01-27 16:39 | disposition home or self-care (01) ==
LOC: ANHIMG 16:44
PROVIDERS: Visit Provider Physician Assistant
DX: M48.50XA Collapsed vertebra, not elsewhere classified, site unspecified, initial encounter for fracture (principal); C50.511 Malignant neoplasm of lower-outer quadrant of right female breast; Z17.0 Estrogen receptor positive status [ER+]
CPT/HCPCS: 77080

== ENCOUNTER 2021-04-14 07:48 | Outpatient (CLI) | payer MEDICARE, SELFPAY ==
[2021-04-14 08:59] LABS: Hematocrit 36.1 % (37.0-47.0); Hemoglobin 11.9 g/dL (12.0-15.0); Mean Corpuscular Hemoglobin 31.6 pg (26-34); Mean Platelet Volume 9.4 fl (7.4-10.4); Platelet Count Result 155 k/mm3 (150-375); Red Blood Count 3.76 M/mm3 (4.2-5.4); Red Cell Distribution Width 13.2 % (11.5-14.5); White Blood Count 3.6 K/mm3 (4.5-10.0)
[2021-04-14 09:07] LABS: Alanine Aminotransferase 14 U/L (4-35); Albumin Level 4.3 g/dL (3.5-5.1); Alkaline Phosphatase 52 U/L (38-126); Anion Gap 5 mmol/L (8-16); Aspartate Amino Transferase 22 U/L (14-36); Bilirubin,Total 0.8 mg/dL (0.2-1.3); Blood Urea Nitrogen 18 mg/dL (7-17); Calcium 9.3 mg/dL (8.4-10.2); Carbon Dioxide 30 mmol/L (22-30); Chloride 105 mmol/L (98-107); Cholesterol 160 mg/dL (0-200); Estimated Glomerular Filt Rate > 60; Glucose 102 mg/dL (65-110); HDL Direct 70 mg/dL; Potassium 4.3 mmol/L (3.4-5.0); Sodium 140 mmol/L (137-145); Triglycerides 62 mg/dL (<150)
[2021-04-14 09:18] LABS: LDL Cholesterol Direct 60 mg/dL
[2021-04-14 10:37] LABS: Add Urine Microscopic? YES; Appearance Urine Clear (Clear); Bilirubin Urine Negative (Negative); Blood Urine Negative (Negative); Color Urine Straw (Yellow); Glucose Urine UA Negative (Negative); Ketones Urine Negative (Negative); Leukocyte Esterase Ur 1+ LEU/UL (NEGATIVE); Mucus Urine Rare /lpf; Nitrate Urine Negative (Negative); Protein Urine Negative (Negative); RBC Urine 0-2 /hpf (0-2); Specific Grav Ur 1.005 (1.001-1.035); Squamous Epithelial Cell Urine Rare /hpf (Few); Urobilinogen Urine Negative mg/dL (<2.0)
== END 2021-04-14 07:49 | disposition home or self-care (01) ==
PROVIDERS: PCP Family Medicine; Visit Provider Family Medicine
DX: R53.83 Other fatigue (principal); I10 Essential (primary) hypertension; Z00.00 Encounter for general adult medical examination without abnormal findings
CPT/HCPCS: 36415; 80053; 80061; 81001; 84443; 85027

== ENCOUNTER 2021-07-06 11:59 | Outpatient (CLI) | payer MEDICARE, SELFPAY ==
[2021-07-06 12:52] LABS: Basophils Absolute Auto 0.1 K/mm3 (0.0-0.1); Basophils Percent Auto 1.6 % (0.2-1.2); Eosinophils Absolute Auto 0.1 K/mm3 (0-0.3); Eosinophils Percent Auto 1.3 % (0-4.4); Hematocrit 35.2 % (37.0-47.0); Immature Granulocyte Absolute 0.02 K/mm3 (0.00-0.031); Immature Granulocyte Percent A 0.5 % (0-0.5); Lymphocytes Absolute Auto 1.32 K/mm3 (0.9-3.2); Lymphocytes Percent Auto 35.4 % (18.3-44.2); Mean Corpuscular HGB Conc 34.1 g/dl (32-36); Mean Corpuscular Hemoglobin 35.7 pg (26-34); Mean Corpuscular Volume 104.8 fl (80-100); Mean Platelet Volume 9.5 fl (7.4-10.4); Monocytes Absolute Auto 0.3 K/mm3 (0.1-0.6); Neutrophils Percent Auto 54.2 % (45.5-73.1); Platelet Count Result 188 k/mm3 (150-375); Red Blood Count 3.36 M/mm3 (4.2-5.4); Red Cell Distribution Width 14.4 % (11.5-14.5); White Blood Count 3.7 K/mm3 (4.5-10.0)
[2021-07-06 13:02] LABS: Alanine Aminotransferase 15 U/L (4-35); Albumin Level 4.4 g/dL (3.5-5.1); Alkaline Phosphatase 55 U/L (38-126); Anion Gap 5 mmol/L (8-16); Aspartate Amino Transferase 23 U/L (14-36); Bilirubin,Total 0.5 mg/dL (0.2-1.3); Blood Urea Nitrogen 19 mg/dL (7-17); Calcium 9.4 mg/dL (8.4-10.2); Carbon Dioxide 31 mmol/L (22-30); Chloride 104 mmol/L (98-107); Estimated Glomerular Filt Rate > 60; Glucose 126 mg/dL (65-110); Potassium 3.9 mmol/L (3.4-5.0); Sodium 140 mmol/L (137-145)
[2021-07-09 15:47] LABS: CA 15-3 8 U/mL (<32)
== END 2021-07-06 12:00 | disposition home or self-care (01) ==
PROVIDERS: PCP Family Medicine; Visit Provider Internal Medicine Hematology & Oncology
DX: M85.89 Other specified disorders of bone density and structure, multiple sites (principal); C50.919 Malignant neoplasm of unspecified site of unspecified female breast
CPT/HCPCS: 36415; 80053; 85025; 86300

== ENCOUNTER 2021-07-17 08:10 | Outpatient (CLI) | payer MEDICARE, SELFPAY ==
--- NOTE | ~2021-07-17 | US_ITS ---
EXAMINATION: US venous doppler [facility] DATE: 07/17/2021 09:46 INDICATION: Left lower limb swelling TECHNIQUE: Alvarado scale images without and with compression and Doppler images of the left lower extrem ity veins were obtained. COMPARISON: None FINDINGS: The left common femoral vein, profunda femoral vein, femoral vein, popliteal vein, peroneal trunk, posterior tibial veins, and greater saphenous vein are patent. A 4.5 x 1.5 x 2.2 cm Vogt's c yst is noted. IMPRESSION: 1. Patent left lower extremity veins. No evidence of deep venous thrombosis. Reviewed, dictated and finalized at location B.
== END 2021-07-17 08:11 | disposition home or self-care (01) ==
PROVIDERS: PCP Family Medicine; Visit Provider Internal Medicine Hematology & Oncology
DX: M79.89 Other specified soft tissue disorders (principal)
CPT/HCPCS: 93971

== ENCOUNTER 2021-08-03 08:01 | Outpatient (CLI) | payer MEDICARE, SELFPAY ==
--- NOTE | ~2021-08-03 | NM_ITS ---
EXAMINATION: NM bone scan whole body DATE: 08/03/2021 11:33 INDICATION: Metastatic breast cancer TECHNIQUE: 26.9 mCi Tc-99m HDP was administered intravenously. Delayed whole-body scintigrams were o btained. COMPARISON: Bone scan dated 11/27/2020, thoracic spine MR dated 11/28/[address] studies dated 11/27/19 21 and 11/27/2020 FINDINGS: Interval decrease in focal uptake associated with a likely metastatic pathologic burst fracture at T9 and likely metastatic mixed lytic and sclerotic lesion at the right ischial tuberosity. Unchanged li gabriel degenerative joint centered uptake at the right midfoot. 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 Intense focus of likely extravasated soft tissue activity at the site of injection at the left antecubital fossa. No other new suspicious bone lesions identified . IMPRESSION: 1. Slight decrease in uptake associated with likely metastatic lesions at the right ischial tuberosit y and at T9 where there is a previous noted pathologic fracture. No new lesions to suggest progressio n of metastatic disease. Reviewed, dictated and finalized at location B. IMPRESSION: 1. Slight decrease in uptake associated with likely metastatic lesions at the r ight ischial tuberosity and at T9 where there is a previous noted pathologic fr acture. No new lesions to suggest progression of metastatic disease.
== END 2021-08-03 08:02 | disposition home or self-care (01) ==
PROVIDERS: PCP Family Medicine; Visit Provider Internal Medicine Hematology & Oncology
DX: C50.919 Malignant neoplasm of unspecified site of unspecified female breast (principal); C79.51 Secondary malignant neoplasm of bone
CPT/HCPCS: 78306; A9561

== ENCOUNTER 2021-11-25 14:55 | Outpatient (CLI) | payer MEDICARE, SELFPAY ==
--- NOTE | ~2021-11-25 | MM_ITS ---
EXAMINATION: MM screening guillermo BI w diandra HISTORY: Screening mammogram TECHNIQUE: Craniocaudal and mediolateral oblique 3-D tomosynthesis images were obtained and synthetic 2-D images were generated. CAD analysis was submitted and interpreted. COMPARISON: 10/20/2020, 10/20/2019, 09/21/2018, 09/19/2017, 09/09/2016 bilateral screening mammogram examinat ions bilateral screening mammogram examinations BREAST PARENCHYMAL COMPOSITION: There are scattered areas of fibroglandular density. FINDINGS: Chronic stable postoperative scarring and retraction of the right breast following partial mastectomy for breast cancer. There is no evidence of suspicious mass, calcification, or new architec tural distortion to suggest malignancy in either breast. There has been no suspicious interval change . IMPRESSION: 1. Status post right partial mastectomy for breast cancer. No mammographic evidence of malignancy. 2. Recommend routine screening mammography in one year. BI-RADS Category 2: Benign finding(s). Reviewed, dictated and finalized at location A. IMPRESSION: 1. Status post right partial mastectomy for breast cancer. No mammographic evid ence of malignancy. 2. Recommend routine screening mammography in one year. BI-RADS Category 2: Benign finding(s).
== END 2021-11-25 14:56 | disposition home or self-care (01) ==
LOC: ANHIMG 15:00
PROVIDERS: PCP Family Medicine; Visit Provider Internal Medicine Hematology & Oncology
DX: Z12.31 Encounter for screening mammogram for malignant neoplasm of breast (principal)
CPT/HCPCS: 77063; 77067

== ENCOUNTER 2022-04-28 08:05 | Outpatient (CLI) | payer MEDICARE, SELFPAY ==
--- NOTE | ~2022-04-28 | NM_ITS ---
EXAMINATION: NM bone scan whole body DATE: 04/28/2022 11:27 INDICATION: Metastatic breast cancer. TECHNIQUE: 24.6 mCi Tc-99m HDP was administered intravenously. Delayed whole-body scintigrams were o btained. COMPARISON: Bone scan 08/03/2021, CT chest 11/27/2020, CT abdomen and pelvis 12/26/2020 FINDINGS: There is increased activity in the right ischium correlating with a sclerotic lesion by CT. There is increased activity at T9 correlating with a mixed lytic and sclerotic lesion by CT. There i s increased activity in right foot without radiographic comparison, likely osteoarthritis. IMPRESSION: 1. Stable distribution of increased activity in T9 and right ischium, consistent with metastatic dise ase. Reviewed, dictated and finalized at location A. ER IMPRESSION: 1. Stable distribution of increased activity in T9 and right ischium, consisten t with metastatic disease.
== END 2022-04-28 08:06 | disposition home or self-care (01) ==
PROVIDERS: PCP Family Medicine; Visit Provider Internal Medicine Hematology & Oncology
DX: C50.919 Malignant neoplasm of unspecified site of unspecified female breast (principal)
CPT/HCPCS: 78306; A9503

== ENCOUNTER 2022-12-31 09:13 | Outpatient (CLI) | payer MEDICARE, SELFPAY ==
--- NOTE | ~2022-12-31 | NM_ITS ---
EXAMINATION: NM bone scan whole body DATE: 12/31/2022 12:56 INDICATION: Right breast cancer TECHNIQUE: 25 mCi Tc-99m HDP was administered intravenously. Delayed whole-body scintigrams were obt ained. COMPARISON: Bone scan dated 04/28/[address] chest dated 11/27/2020, thoracic spine MR dated 11/28/[address] abdomen and pelvis dated 11/26/2020 FINDINGS: No interval change in mild uptake in the midthoracic spine corresponding to a chronic pathologic frac ture of the T9 vertebral body with enhancement on MRI also extending into the posterior elements. The re is also no interval change in mild uptake at the left ischial corresponding to a sclerotic bone le chung on prior CT. Unchanged mild likely degenerative uptake at the right midfoot. Small focus of urin e contamination in the perineal region. No new lesions to suggest progression of metastatic disease. IMPRESSION: 1. Stable regions of mild increased activity at T9 and in the right ischium consistent with chronic m etastatic disease. No new lesion to suggest interval progression. Reviewed, dictated and finalized at location A. IMPRESSION: 1. Stable regions of mild increased activity at T9 and in the right ischium con sistent with chronic metastatic disease. No new lesion to suggest interval prog ression.
== END 2022-12-31 09:14 | disposition home or self-care (01) ==
PROVIDERS: PCP Family Medicine; Visit Provider Internal Medicine Hematology & Oncology
DX: C50.511 Malignant neoplasm of lower-outer quadrant of right female breast (principal); Z17.0 Estrogen receptor positive status [ER+]
CPT/HCPCS: 78306; A9503